=== PATIENT | male | born 1990 | race Caucasian/White ===

== ENCOUNTER 2017-11-24 17:28 | Emergency (ER) | payer SELFPAY ==
[2017-11-24 17:37] VITALS: BP 145/100; PULSE 82; RESP 16; TEMP 98.5; O2SAT 98
[2017-11-24] MEDS ORDERED: Lidocaine 5% Patch TD STA (18:12)
[2017-11-24] MEDS ORDERED: Dexamethasone 4 mg/1 ml IM STA (18:12)
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
[2017-11-24] MEDS ORDERED: Dexamethasone 4 mg/1 ml ONE (18:42)
[2017-11-24] MEDS ORDERED: Lidocaine 5% Patch TD ONE (18:43)
== END 2017-11-24 19:10 | disposition home or self-care (01) ==
LOC: C.ER 17:28
DX: M54.5 Low back pain (principal)
CPT/HCPCS: 96372; 99283; J1100; J1885